=== PATIENT | female | born 1960 | race Caucasian/White ===

== ENCOUNTER 2019-04-28 07:03 | Emergency (ER) | payer OTHER ==
[~2019-04-28] VITALS: Ht 152.4 cm; Wt 69.0 kg
[~2019-04-28 07:03] MED LIST: ALAVERT10 M1 PO; CALCIUM CARBONA1 T10 PO; CIPRO 250MG TA250 MG PO; CRANBERRY1 CAP PO; HCTZ 25MG25 MG PO; MACRODANTIN50 MG/CA1 PO; MULTIVITAMIN FO1 CAP PO; TRAZADONE HYDR100 MG PO; ZOFRAN ODT8 MG PO
[2019-04-28 08:20] LABS: HEMATOCRIT 46.2 % (37.0-47.0); MEAN CELL VOLUME 93 fl (78-100); MEAN CORPUSCULAR HEMOGLOBIN 30 pg (27-31); MEAN CORPUSCULAR HGB CONC 33 g/dL (33-37); MEAN PLATELET VOLUME 10.1 fl (7.4-10.4); PLATELET COUNT 301 K/mm3 (130-400); RED BLOOD COUNT 4.98 M/mm3 (4.10-5.30); RED CELL DISTRIBUTION WIDTH 13.1 % (11.5-14.5); WHITE BLOOD COUNT 11.6 K/mm3 (4.8-10.8)
[2019-04-28] MEDS ORDERED: ZYRTEC ALLERGY10 MG PO (08:29)
[2019-04-28] MEDS ORDERED: COZAAR25 M1 PO (08:29)
[2019-04-28] MEDS ORDERED: MACRODANTIN50 M1 PO (08:29)
[2019-04-28] MEDS ORDERED: PROBIOTIC 5 BI1 EACH PO (08:30)
[2019-04-28] MEDS ORDERED: CRANBERRY 12,61 EACH PO (08:31)
[2019-04-28 08:33] LABS: LYMPHOCYTE 4 % (20-51); NEUTROPHILS 96 % (42-75)
[2019-04-28 08:36] LABS: ALBUMIN 4.7 g/dL (3.5-5.0); POTASSIUM 3.5 mmol/L (3.5-5.1)
[2019-04-28 08:38] LABS: TOTAL PROTEIN 7.5 g/dL (6.4-8.3)
[2019-04-28 08:40] LABS: TOTAL BILIRUBIN 0.8 mg/dL (0.2-1.2)
[2019-04-28 09:58] LABS: URINE APPEARANCE CLEAR; URINE BILIRUBIN NEGATIVE (NEGATIVE); URINE COLOR YELLOW; URINE GLUCOSE NEGATIVE (NEGATIVE); URINE KETONE NEGATIVE (NEGATIVE); URINE NITRATE NEGATIVE (NEGATIVE); URINE PROTEIN(semi-quant) TRACE mg/dL (NEGATIVE); URINE UROBILINOGEN NORMAL (NORMAL)
[2019-04-28 09:59] LABS: URINE BLOOD 50 ery/uL (NEGATIVE); URINE LEUKOCYTE ESTERASE NEGATIVE (NEGATIVE); URINE MUCUS PRESENT (NOT PRESENT)
[2019-04-28] MEDS ORDERED: ZOFRAN ODT4 MG PO (10:20)
[2019-04-28 10:39] VITALS: BP 107/70
== END 2019-04-28 10:35 | disposition home or self-care (01) ==
LOC: ED 07:03
PROVIDERS: Physician Assistant
DX: K52.9 Noninfective gastroenteritis and colitis, unspecified (principal); I10 Essential (primary) hypertension; K90.0 Celiac disease; K86.81 Exocrine pancreatic insufficiency; Z90.710 Acquired absence of both cervix and uterus; Z90.49 Acquired absence of other specified parts of digestive tract; Z88.0 Allergy status to penicillin; Z88.2 Allergy status to sulfonamides; Z88.6 Allergy status to analgesic agent; Z88.8 Allergy status to other drugs, medicaments and biological substances
CPT/HCPCS: J2405; J7030

== ENCOUNTER 2020-12-13 11:55 | Emergency (ER) | payer OTHER ==
[~2020-12-13] VITALS: Ht 152.4 cm; Wt 81.7 kg
[~2020-12-13 11:55] MED LIST changes: +CALCIUM 600 PLU1 TAB PO; -CALCIUM CARBONA1 T10 PO; +CENTRUM ADULTS1 EACH PO; +COZAAR25 M1 PO; +CRANBERRY 12,61 EACH PO; +MACRODANTIN50 M1 PO; -MULTIVITAMIN FO1 CAP PO; +PROBIOTIC 5 BI1 EACH PO; +ZOFRAN ODT4 MG PO; +ZYRTEC ALLERGY10 MG PO
[2020-12-13] MEDS ORDERED: MACRODANTIN50 MG/CA1 PO (12:16)
[2020-12-13] MEDS ORDERED: ESCITALOPRAM10 MG PO (12:19)
[2020-12-13] MEDS ORDERED: HCTZ 25MG25 MG PO (12:19)
[2020-12-13 12:56] VITALS: BP 136/81
== END 2020-12-13 12:57 | disposition home or self-care (01) ==
LOC: ED 11:55
DX: S63.611A Unspecified sprain of left index finger, initial encounter (principal); I10 Essential (primary) hypertension; Z79.899 Other long term (current) drug therapy; W54.1XXA Struck by dog, initial encounter; Y93.K1 Activity, walking an animal

== ENCOUNTER → 2021-01-09 | Outpatient (CLI) | payer OTHER ==
[~2021-01-09] MED LIST changes: +ESCITALOPRAM10 MG PO
[2021-01-09 07:48] LABS: BASO # 0.04 K/mm3 (0.02-0.10); EOS # 0.21 K/mm3 (0.04-0.40); EOS % 4.9 % (1.0-5.0); HEMATOCRIT 41.7 % (37.0-47.0); HEMOGLOBIN 13.9 g/dL (12.5-16.0); LYMPH# 1.61 K/mm3 (1.50-4.00); MEAN CELL VOLUME 93 fl (78-100); MEAN CORPUSCULAR HEMOGLOBIN 31 pg (27-31); MEAN CORPUSCULAR HGB CONC 33 g/dL (33-37); MEAN PLATELET VOLUME 10.3 fl (7.4-10.4); MONO # 0.54 K/mm3 (0.20-0.80); NEU # 1.88 K/mm3 (1.40-6.50); PLATELET COUNT 270 K/mm3 (130-400); RED BLOOD COUNT 4.47 M/mm3 (4.10-5.30); RED CELL DISTRIBUTION WIDTH 12.6 % (11.5-14.5); WHITE BLOOD COUNT 4.3 K/mm3 (4.8-10.8)
[2021-01-09 07:56] LABS: ALBUMIN 4.3 g/dL (3.5-5.0); POTASSIUM 3.7 mmol/L (3.5-5.1)
[2021-01-09 07:57] LABS: CALCIUM 9.4 mg/dL (8.3-10.5)
[2021-01-09 07:58] LABS: TOTAL PROTEIN 6.8 g/dL (6.4-8.3)
[2021-01-09 08:00] LABS: TOTAL BILIRUBIN 0.8 mg/dL (0.2-1.2)
[2021-01-09 08:01] LABS: PH-URINE 6.5 (5.0 - 8.0); URINE APPEARANCE CLEAR; URINE BILIRUBIN NEGATIVE (NEGATIVE); URINE BLOOD NEGATIVE (NEGATIVE); URINE COLOR YELLOW; URINE GLUCOSE NEGATIVE (NEGATIVE); URINE KETONE NEGATIVE (NEGATIVE); URINE LEUKOCYTE ESTERASE TRACE (NEGATIVE); URINE MUCUS PRESENT (NOT PRESENT); URINE NITRATE NEGATIVE (NEGATIVE); URINE PROTEIN(semi-quant) TRACE mg/dL (NEGATIVE); URINE UROBILINOGEN NORMAL (NORMAL)
== END ==
LOC: LAB 07:33
PROVIDERS: Family Medicine
DX: Z00.00 Encounter for general adult medical examination without abnormal findings (principal); Z13.220 Encounter for screening for lipoid disorders; Z13.1 Encounter for screening for diabetes mellitus; I10 Essential (primary) hypertension; E78.00 Pure hypercholesterolemia, unspecified